=== PATIENT | male | born 1970 | race African-American/Black ===

== ENCOUNTER 2016-08-16 21:02 | Emergency (ER) | payer OTHER ==
[~2016-08-16] VITALS: Ht 175.3 cm; Wt 152.0 kg
--- NOTE | ~2016-08-16 | EKG ---
[place] [address] [facility] [place] [address] ELECTROCARDIOGRAM REPORT Name: PAUL WHITMAN Room #: DEP [place]#: [id number] Admission: 08/16/16 Attend Phys: Discharge: 08/16/16 Date of : 66 Report #: [id number] THIS REPORT FOR: //name// [facility] ED Test Date: 2016-08-16 Test Time: 21:28:51 Pat Name: PAUL WHITMAN Department: Room: Gender: Appointment Specialist: HUGH : 1970 Requested By: Kimberly Olmos Order Number: [id number] MD: Kobe Miller Measurements Intervals [place] Rate: 69 P: 45 [place]: 183 QRS: -20 QRSD: 168 T: 10 QT: 427 QTc: 458 Interpretive Statements Sinus rhythm Right bundle branch block No previous ECG available for comparison Electronically Signed On 08-17-2016 9:27:14 CDT by Kobe Miller [email or web address] <ELECTRONICALLY SIGNED> By: Kobe Miller MD, [facility] 08/17/16 0927 2128 2128 Kobe Miller MD, FAC /EPI
[~2016-08-16 21:02] MED LIST: HYDROCHLOROTH12.5 M1 PO; LISINOPRIL20 MG PO; NORCO 5-325 TA1 EACH PO; ZOCOR20 MG PO
[2016-08-16] MEDS ORDERED: OMEPRAZOLE40 MG PO (21:08)
[2016-08-16 21:24] LABS: URINE BILIRUBIN NEGATIVE (Negative); URINE BLOOD NEGATIVE (Negative); URINE COLOR YELLOW; URINE GLUCOSE-RANDOM* NEGATIVE (Negative); URINE KETONES NEGATIVE (Negative); URINE NITRITE NEGATIVE (Negative); URINE PROTEIN (DIPSTICK) NEGATIVE (Negative); URINE UROBILINOGEN 0.2 E.U./dl (0.2-1.0)
[2016-08-16 21:30] LABS: ABSOLUTE NEUTROPHILS 2.2 thou/uL (1.4-8.2); BASOPHILS 1.1 % (0.0-2.0); EOSINOPHILS 1.5 % (0.0-3.0); HEMATOCRIT 45.3 % (42.0-52.0); HEMOGLOBIN 14.8 gm/dL (14.0-18.0); MCH 26.1 pg (26.0-34.0); MCHC 32.7 g/dL (28.0-37.0); MCV 79.9 fL (80.0-100.0); MONOCYTES 9.1 % (1.0-8.0); PLATELET COUNT 199 thou/uL (150-400); POLYS 41.3 % (36.0-66.0); RBC 5.66 mil/uL (4.50-6.00); RDW 14.9 % (10.5-14.5); WBC 5.3 thou/uL (4.0-11.0)
[2016-08-16 21:34] LABS: MANUAL DIFF NO
[2016-08-16 21:41] LABS: ANION GAP 5 mmol/L (7-16); BUN 18 mg/dL (7-18); CALCIUM 9.1 mg/dL (8.5-10.1); CHLORIDE 106 mmol/L (98-107); CO2 30 mmol/L (21-32); GLUCOSE 118 mg/dL (74-106); POTASSIUM 3.8 mmol/L (3.5-5.1); SODIUM 141 mmol/L (136-145)
[2016-08-16 21:48] LABS: ALBUMIN 3.7 g/dL (3.4-5.0); ALKALINE PHOSPHATASE 48 U/L (46-116); DIRECT BILIRUBIN < 0.1 mg/dL (<0.1-0.3); SGOT 21 U/L (15-37); SGPT 28 U/L (30-65); TOTAL BILIRUBIN 0.3 mg/dL (<0.1-1.0); TOTAL PROTEIN 6.7 g/dL (6.4-8.2); TROPONIN-I < 0.04 ng/mL (<0.04-0.07)
[2016-08-16] MEDS ORDERED: NORCO 5-325 TA1 EACH PO (22:52)
[2016-08-16 23:30] VITALS: BP 135/79
== END 2016-08-16 22:52 ==
LOC: ER 21:02
PROVIDERS: Emergency Medicine
DX: K80.20 Calculus of gallbladder without cholecystitis without obstruction (principal); K21.9 Gastro-esophageal reflux disease without esophagitis; I10 Essential (primary) hypertension; E78.00 Pure hypercholesterolemia, unspecified; F10.99 Alcohol use, unspecified with unspecified alcohol-induced disorder; Z88.0 Allergy status to penicillin

== ENCOUNTER 2016-10-09 22:06 | Emergency (ER) | payer OTHER ==
[~2016-10-09] VITALS: Ht 175.3 cm; Wt 147.4 kg
[~2016-10-09 22:06] MED LIST changes: +OMEPRAZOLE40 MG PO
[2016-10-09] MEDS ORDERED: IBUPROFEN 800800 M1 PO (22:31)
[2016-10-10] MEDS ORDERED: TRAMADOL 50 MG50 MG PO (00:43)
[2016-10-10] MEDS ORDERED: ROBAXIN500 MG PO (00:43)
[2016-10-10] MEDS ORDERED: NAPROSYN500 MG PO (00:43)
[2016-10-10 00:55] VITALS: BP 116/61
== END 2016-10-10 00:56 | disposition home or self-care (01) ==
LOC: ER 22:06
DX: G44.209 Tension-type headache, unspecified, not intractable (principal); M46.82 Other specified inflammatory spondylopathies, cervical region; I10 Essential (primary) hypertension; E78.00 Pure hypercholesterolemia, unspecified; F10.99 Alcohol use, unspecified with unspecified alcohol-induced disorder; Z98.890 Other specified postprocedural states; Z88.0 Allergy status to penicillin

== ENCOUNTER 2017-11-23 08:28 | Emergency (ER) | payer OTHER ==
[~2017-11-23] VITALS: Ht 175.3 cm; Wt 167.8 kg
[~2017-11-23 08:28] MED LIST changes: +IBUPROFEN 800800 M1 PO; +NAPROSYN500 MG PO; +ROBAXIN500 MG PO; +TRAMADOL 50 MG50 MG PO
[2017-11-23] MEDS ORDERED: NORFLEX100 MG PO (09:08)
[2017-11-23] MEDS ORDERED: NORCO 5-325 TA1 EACH PO (09:08)
[2017-11-23] MEDS ORDERED: NAPROSYN500 MG PO (09:08)
[2017-11-23 10:04] VITALS: BP 120/71
== END 2017-11-23 10:16 | disposition home or self-care (01) ==
LOC: ER 08:28
DX: S39.012A Strain of muscle, fascia and tendon of lower back, initial encounter (principal); G89.29 Other chronic pain; E78.00 Pure hypercholesterolemia, unspecified; I10 Essential (primary) hypertension; X50.9XXA Other and unspecified overexertion or strenuous movements or postures, initial encounter; Y93.89 Activity, other specified; Y92.89 Other specified places as the place of occurrence of the external cause; Y99.8 Other external cause status; Z88.0 Allergy status to penicillin

== ENCOUNTER 2018-01-07 19:39 | Observation (INO) | payer OTHER ==
[~2018-01-07] VITALS: Ht 175.3 cm; Wt 182.8 kg
--- NOTE | ~2018-01-07 | EKG ---
[address] [address] ELECTROCARDIOGRAM REPORT Name: PAUL WHITMAN Room #: 363-P [facility] M.R.#: [id number] Admission: 01/07/18 Attend Phys: John Woodall MD Discharge: Date of : 66 Report #: [id number] THIS REPORT FOR: //name// [facility] ED Test Date: 2018-01-07 Test Time: 20:32:21 Pat Name: PAUL WHITMAN Department: Room: [facility] Gender: M Inspector Elevators: lester : 1970 Requested By: Anders Foreman Order Number: [id number] MD: Silvestre Cotton Measurements Intervals [place] Rate: 70 P: 50 [place]: 167 QRS: -24 QRSD: 171 T: 15 QT: 439 QTc: 474 Interpretive Statements Sinus rhythm Right bundle branch block Compared to ECG 08/16/2016 21:28:51 No significant changes Electronically Signed On 01-08-2018 9:38:04 GATE KEEPER by Silvestre Cotton [email or web address] <ELECTRONICALLY SIGNED> By: Silvestre Cotton MD 01/08/18937 31 31 MD LORENA Small
--- NOTE | ~2018-01-07 | 2DMMODE ---
[facility] [address] [place] [address] 2 D/M-MODE ECHOCARDIOGRAM Name: PAUL WHITMAN Room #: 363-P [facility] IN M.R.#: [id number] Admission: 01/07/18 Attend Phys: John Woodall MD Discharge: 01/08/18 Date of : 66 Date of Service: 01/09/18 1039 Report #: [id number] THIS REPORT FOR: //name// APPROVED REPORT Study performed: 01/08/2018 11:41:10 EXAM: Comprehensive 2D, Doppler, and color-flow Echocardiogram with contrast Patient Location: Bedside Room #: 363 Status: routine BSA: 1.07 HR: 61 bpm BP: 100/45 mmHg Rhythm: NSR Other Information Study Quality: Poor Indications Dyspnea Chest Pain Echo Enhancing Agent Indication: Endocardial border delineation Agent(s) / Amount(s) Used: Optison 6 cc 2D Dimensions IVSd: 13.00 (7-11mm) LVOT Diam: 22.75 (18-24mm) LVDd: 52.69 mm PWd: 12.50 (7-11mm) Ascending Ao: 31.64 (22-36mm) LVDs: 35.69 (25-40mm) Aortic Root: 33.68 mm Aortic Valve AoV Peak Minesh.: 1.70 m/s AO Peak Gr.: 12.74 mmHg LVOT Max P.75 mmHg LVOT Max V: 1.30 m/s BRITTANY Vmax: 3.10 cm2 Mitral Valve E/A Ratio: 1.5 MV Decel. Time: 215.53 ms MV E Max Minesh.: 1.11 m/s MV A Minesh.: 0.74 m/s [facility] [address] [address] 2 D/M-MODE ECHOCARDIOGRAM Name: PAUL WHITMAN Room #: 363-[facility] IN [facility].#: [id number] Admission: 01/07/18 Attend Phys: John Woodall MD Discharge: 01/08/18 Date of : 66 Date of Service: 01/09/18 1039 Report #: [id number] MV PHT: 62.50 ms IVRT: 96.89 ms Pulmonary Valve PV Peak Minesh.: 0.81 m/s PV Peak Gr.: 2.62 mmHg Pulmonary Vein P Vein S: 0.24 m/s P Vein D: 0.49 m/s P Vein S/D Ratio: 0.49 Tricuspid Valve TR Peak Minesh.: 0.74 m/s RAP Estimate: 5.00 mmHg TR Peak Gr.: 2.21 mmHg PA Pressure: 27.00 mmHg Left Ventricle The left ventricle is normal size. Mild concentric left ventricular hypertrophy. The left ventricular systolic function is normal. The left ventricular ejection fraction is within the normal range. LVEF is 55-60%. The left ventricular diastolic function is normal. Right Ventricle The right ventricle is normal size. Atria The left atrium size is normal. Aortic Valve The aortic valve is normal in structure. Aortic valve appears trileaflet. No aortic regurgitation is present. There is no aortic valvular stenosis. Mitral Valve Mitral valve is not well visualized. Trace mitral regurgitation. No evidence of mitral valve stenosis. Tricuspid Valve The tricuspid valve is normal in structure. Trace to mild tricuspid regurgitation. Estimated PAP of 27 mmHg. Pulmonic Valve Pulmonic valve is not well visualized. There is no pulmonic valvular regurgitation. Great [employer]els [facility] [address] [address] 2 D/M-MODE ECHOCARDIOGRAM Name: PAUL WHITMAN Room #: 363-P [facility] IN M.R.#: [id number] Admission: 01/07/18 Attend Phys: John Woodall MD Discharge: 01/08/18 Date of : 66 Date of Service: 01/09/18 1039 Report #: [id number] The aortic root is normal in size. The ascending aorta is normal in size. IVC is normal in size and collapses >50% with inspiration. Pericardium There is no pericardial effusion. <Conclusion> The left ventricle is normal size. Mild concentric left ventricular hypertrophy. The left ventricular systolic function is normal. LVEF is 55-60%. The left ventricular diastolic function is normal. The left atrium size is normal. The aortic valve is normal in structure. Mitral valve is not well visualized. Trace mitral regurgitation. Trace to mild tricuspid regurgitation. Estimated PAP of 27 mmHg. <ELECTRONICALLY SIGNED> By: Silvestre Cotton MD 01/09/181038 38 103 Silvestre Cotton MD /INF
--- NOTE | ~2018-01-07 | HC ---
[facility] [place] [address] CONSULTATION Name: PAUL WHITMAN Room #: 363-P [facility] Cristian Fraire#: [id number] Admission: 01/07/18 Attend Phys: John Woodall MD Discharge: 01/08/18 Date of : 66 Report #: [id number] THIS REPORT FOR: //name// CC: Kassandra Woodall DATE OF SERVICE: 01/08/2018 INDICATION: Chest pain. HISTORY OF PRESENT ILLNESS: This is a 47-year-old gentleman with a history of obesity, hypertension, hypercholesterolemia, presenting with dyspnea and chest discomfort. For the past 3 days, he has been feeling dyspneic with mild levels of physical exertion. Walking from one part of the house to the other will elicit dyspnea. He did not have any chest pains at that time. There is no history of fever, cough or nausea. He did feel malaise and head congestion. Yesterday, he also developed an ache across the chest area, nonradiating. It lasted throughout the day. It may have been a little bit worse when he took a deep breath. He presented to the ER for an evaluation. There is no history of diarrhea, PND or orthopnea. His first two troponin levels are negative. He is chest pain free at this time. PAST MEDICAL HISTORY: Hypertension, hypercholesterolemia, obesity, chronic back pains, GERD. MEDICATIONS: At home include hydrocodone, simvastatin 20 mg, hydrochlorothiazide and lisinopril. SOCIAL HISTORY: Denies tobacco use, former smoker. FAMILY HISTORY: Negative for premature CAD. REVIEW OF SYSTEMS: A full 10-point review of systems performed. Only the pertinent positives and negatives are described in the HPI. PHYSICAL EXAMINATION: VITAL SIGNS: Blood pressure is 120/70, heart rate is 80 beats per minute. GENERAL APPEARANCE: An overweight male, in no acute distress. HEENT: Atraumatic, normocephalic. Oral mucosa moist. NECK: Supple. LUNGS: Clear to auscultation. CARDIAC: Regular rate and rhythm, S1, S2 positive. ABDOMEN: Soft, nontender. EXTREMITIES: No cyanosis, trace edema. NEUROLOGIC: Alert and oriented x 3. [facility] [address] [place] [address] CONSULTATION Name: PAUL WHITMAN Room #: 363-P [facility] Cristian Fraire#: [id number] Admission: 01/07/18 Attend Phys: John Woodall MD Discharge: 01/08/18 Date of : 66 Report #: [id number] LABORATORY VALUES: Troponin negative x 2. ECG reveals sinus rhythm, right bundle branch block. ASSESSMENT AND PLAN: 1. Chest pain syndrome, the patient had chest pain all day long yesterday, not classic for ischemia. The initial ECG is unremarkable. Two sets of troponin levels are negative. I do not believe this is cardiac related. However, he does have significant risk factors and will require stress testing. The patient appears clinically stable and would like to be discharged and follow up with an outpatient stress test. As long as he remains clinically stable, I think this is a reasonable approach. 2. Hypertension. The blood pressure is well controlled on ROBERT inhibitor and diuretic. 3. Hypercholesterolemia, tolerating statin therapy, offers no complaints of myalgias. 4. Edema, trace amount. Continue with diuretic and maintain a low salt diet. <ELECTRONICALLY SIGNED> By: Silvestre Cotton MD 01/09/18 0959 0840 1122 Silvestre Cotton MD /nt
[2018-01-07 19:39] VITALS: BP 110/77
[~2018-01-07 19:39] MED LIST changes: +NORFLEX100 MG PO
[2018-01-07 20:28] LABS: ABSOLUTE NEUTROPHILS 2.4 thou/uL (1.4-8.2); BASOPHILS 1.7 % (0.0-2.0); EOSINOPHILS 1.7 % (0.0-3.0); HEMATOCRIT 44.5 % (42.0-52.0); HEMOGLOBIN 14.7 gm/dL (14.0-18.0); LYMPHOCYTES 40.4 % (24.0-44.0); MCH 26.1 pg (26.0-34.0); MCHC 32.9 g/dL (28.0-37.0); MCV 79.4 fL (80.0-100.0); MONOCYTES 8.4 % (1.0-8.0); PLATELET COUNT 211 thou/uL (150-400); POLYS 47.8 % (36.0-66.0); RBC 5.61 mil/uL (4.50-6.00); RDW 15.7 % (10.5-14.5)
[2018-01-07 20:42] LABS: ANION GAP 3 mmol/L (7-16); BUN 13 mg/dL (7-18); CALCIUM 9.6 mg/dL (8.5-10.1); CHLORIDE 106 mmol/L (98-107); CO2 32 mmol/L (21-32); CREATININE 0.9 mg/dL (0.7-1.3); GLUCOSE 119 mg/dL (74-106); POTASSIUM 4.5 mmol/L (3.5-5.1); SODIUM 141 mmol/L (136-145)
[2018-01-07 20:46] LABS: ALBUMIN 3.6 g/dL (3.4-5.0); MAGNESIUM 2.1 mg/dL (1.8-2.4); SGOT 36 U/L (15-37); SGPT 49 U/L (30-65); TOTAL BILIRUBIN 0.3 mg/dL (<0.1-1.0); TOTAL PROTEIN 7.2 g/dL (6.4-8.2); TROPONIN-I <0.06 ng/mL (<0.06)
[2018-01-07 20:52] LABS: AMP/METHAMP Negative (Negative); BARBITURATES Negative (Negative); BENZODIAZEPINES Negative (Negative); COCAINE Negative (Negative); METHADONE Negative (Negative); OPIATES Negative (Negative); PCP Negative (Negative)
[2018-01-07 21:57] VITALS: BP 132/66
[2018-01-07 23:14] VITALS: BP 118/65
[2018-01-07 23:24] VITALS: BP 112/53
[2018-01-07 23:35] VITALS: BP 145/70
[2018-01-08 03:07] LABS: CHOLESTEROL 151 mg/dL (<200); HDL CHOLESTEROL 70 mg/dL (>40); LDL CHOLESTEROL 61 mg/dL (<100); TC:HDL 2.2 Ratio (Not establshd); TRIGLYCERIDE 103 mg/dL (<150); VLDL 21 mg/dL (<40)
[2018-01-08 03:35] VITALS: BP 100/45
[2018-01-08 07:57] VITALS: BP 113/54
[2018-01-08] MEDS ORDERED: ASPIR 8181 MG PO (11:22)
[2018-01-08] MEDS ORDERED: NITROGLYCERIN0.4 MG SUBLING (11:22)
[2018-01-08] MEDS ORDERED: PANTOPRAZOLE SO40 M1 PO (11:22)
[2018-01-08] MEDS ORDERED: NAPROXEN250 MG PO (11:22)
[2018-01-08 11:30] VITALS: BP 113/54
[2018-01-08 12:39] VITALS: BP 129/81
[2018-01-09 00:05] LABS: GLYCOHEMOGLOBIN (HGB A1C) 5.6 % (4.8-5.6)
== END 2018-01-08 13:58 | disposition home or self-care (01) ==
LOC: ER 19:39 → EROBS 22:40 → 3W 23:26
PROVIDERS: Emergency Medicine; Nurse Practitioner Acute Care
DX: R07.89 Other chest pain (principal); I10 Essential (primary) hypertension; E78.5 Hyperlipidemia, unspecified; E66.01 Morbid (severe) obesity due to excess calories; K21.9 Gastro-esophageal reflux disease without esophagitis; M62.838 Other muscle spasm; R60.9 Edema, unspecified; G89.29 Other chronic pain; M54.5 Low back pain; G47.33 Obstructive sleep apnea (adult) (pediatric); E78.00 Pure hypercholesterolemia, unspecified; I82.409 Acute embolism and thrombosis of unspecified deep veins of unspecified lower extremity; R06.00 Dyspnea, unspecified; M46.82 Other specified inflammatory spondylopathies, cervical region; Z87.891 Personal history of nicotine dependence; Z98.890 Other specified postprocedural states; Z79.899 Other long term (current) drug therapy; Z79.82 Long term (current) use of aspirin; Z72.89 Other problems related to lifestyle

== ENCOUNTER → 2018-02-10 | Outpatient (CLI) | payer OTHER ==
[~2018-02-10] VITALS: Ht 175.3 cm; Wt 158.8 kg
[~2018-02-10] MED LIST changes: +ASPIR 8181 MG PO; +NAPROXEN250 MG PO; +NITROGLYCERIN0.4 MG SUBLING; +PANTOPRAZOLE SO40 M1 PO
[2018-02-10 07:16] LABS: HEMATOCRIT 44.2 % (42.0-52.0); HEMOGLOBIN 14.5 gm/dL (14.0-18.0); MCH 25.8 pg (26.0-34.0); MCHC 32.9 g/dL (28.0-37.0); MCV 78.5 fL (80.0-100.0); RBC 5.64 mil/uL (4.50-6.00); RDW 15.5 % (10.5-14.5); WBC 5.3 thou/uL (4.0-11.0)
[2018-02-10 07:24] VITALS: BP 164/95
[2018-02-10 07:25] LABS: CALCIUM 9.1 mg/dL (8.5-10.1); CREATININE 0.9 mg/dL (0.7-1.3)
[2018-02-10 07:31] LABS: CHOLESTEROL 162 mg/dL (<200); HDL CHOLESTEROL 77 mg/dL (>40); LDL CHOLESTEROL 65 mg/dL (<100); TC:HDL 2.1 Ratio (Not establshd); TRIGLYCERIDE 100 mg/dL (<150); VLDL 20 mg/dL (<40)
--- NOTE | 2018-02-10 08:42 | EKG ---
[place] [address] [facility] [place] [address] ELECTROCARDIOGRAM REPORT Name: PAUL WHITMAN Room #: REG [facility]#: [id number] Admission: 02/10/18 Attend Phys: Silvestre Cotton MD Discharge: Date of : 66 Report #: [id number] THIS REPORT FOR: //name// [facility] Test Date: 2018-02-10 Test Time: 07:29:28 Pat Name: PAUL WHITMAN Department: Room: Gender: M Vocational Training Instructor: Gal GARZON : 1970 Requested By: Silvestre Cotton Order Number: [id number] MD: Kobe Miller Measurements Intervals [place] Rate: 69 P: 56 [place]: 186 QRS: -25 QRSD: 168 T: 9 QT: 436 QTc: 467 Interpretive Statements Sinus rhythm Right bundle branch block Compared to ECG 01/07/2018 20:32:21 No significant changes Electronically Signed On 02-10-2018 8:42:06 NET MVC DEVELOPER by Kobe Miller [email or web address] <ELECTRONICALLY SIGNED> By: Kobe Miller MD, [facility] 02/10/18 0842 D: 01728 8 Kobe Miller MD, FACC /EPI
--- NOTE | 2018-02-10 14:10 | CATHLAB ---
[place] [address] [facility] [place] [address] INVASIVE PROCEDURE REPORT Name: PAUL WHITMAN Room #: REG [facility]#: [id number] Admission: 02/10/18 Attend Phys: Silvestre Cotton MD Discharge: Date of : 66 Date of Service: 02/10/18 1410 Report #: [id number] THIS REPORT FOR: //name// APPROVED REPORT Study performed: 02/10/2018 07:12:03 Patient Details Patient Status: Out-Patient Room #: The patient is a 47 year-old male Event Personnel Silvestre Cotton Detective Private Eye, Ev Guerrier RN RN, Ev Guerrier RN RN, Leslie Hogue Sandifer, David Monitor Procedures Performed Coronary Angiography Only [id number] CORANG Indication Dyspnea, Positive stress test, Chest pain Risk Factors Obesity, HypercholesterolemiaPhysical Activity, Hypertension Procedure Narrative The Right Wrist^ was infiltrated with 1% Lidocaine subcutaneous anesthesia. A PINNACLE 4FR Sheath #[id number] sheath was inserted into the Right Radial Artery^. Coronary angiography was performed using coronary diagnostic catheters. The right coronary system was accessed and visualized with a JR4 catheter. The left coronary system was accessed and visualized with a JL4 catheter. Intraoperative Conscious Sedation Sedation start time: 8.33 Case end Time: 9.04 Fentanyl 50 mcg Versed 1 mg Dose: DAP 20714 cGycm2 1692 mGy Contrast Type and Amount: Omnipaque 70 ml Coronary Angiography The patient's coronary anatomy is co- dominant. [facility] [address] [place] [address] INVASIVE PROCEDURE REPORT Name: PAUL WHITMAN SRAVAN Room #: REG CL ..#: [id number] Admission: 02/10/18 Attend Phys: Silvestre Cotton MD Discharge: Date of : 66 Date of Service: 02/10/18 1410 Report #: [id number] Diagnostic Cath Left Main This is a large caliber vessel, patent with no flow-limiting lesions. LAD This is a moderate to large caliber vessel, traversing the anterior wall and wrapping around the apex. There are no flow-limiting lesions in the LAD. Diagonal 1 This is a patent vessel, with no flow-limiting lesions. Circumflex This is a codominant vessel, patent with no flow-limiting lesions. OM1 This is a patent vessel, with no flow-limiting lesions. OM2 There may be minimal luminal irregularities in the proximal segment. Otherwise, this is a patent vessel. Right Coronary This is a moderate size caliber vessel, patent with no flow-limiting lesions. R PDA This is a patent vessel, with no flow-limiting lesions. Left Ventriculography Left Ventriculography was not performed. Ejection Fraction was >55% based off patient's Nuclear Cardiac Stress Test. Hemodynamics The aortic pressure is 124/83 mmHg with a mean of 100 mmHg. Conclusion 1. Essentially patent epicardial vessels with no flow-limiting lesions. There may be minimal luminal irregularities in OM 2. 2. Normal LV systolic function. 3. Recommend aggressive risk factor management. <ELECTRONICALLY SIGNED> By: Silvesrte Cotton MD 02/10/18 1410 1410 1410 Silvestre Cotton MD /INF
== END | disposition home or self-care (01) ==
LOC: CATH 06:47
PROVIDERS: Internal Medicine Cardiovascular Disease
DX: I25.10 Atherosclerotic heart disease of native coronary artery without angina pectoris (principal); I10 Essential (primary) hypertension; E78.00 Pure hypercholesterolemia, unspecified; E66.09 Other obesity due to excess calories; G47.33 Obstructive sleep apnea (adult) (pediatric); K21.9 Gastro-esophageal reflux disease without esophagitis; M54.5 Low back pain; G89.29 Other chronic pain; Z98.890 Other specified postprocedural states; Z82.49 Family history of ischemic heart disease and other diseases of the circulatory system; Z87.891 Personal history of nicotine dependence; Z87.19 Personal history of other diseases of the digestive system; Z88.0 Allergy status to penicillin; Z79.899 Other long term (current) drug therapy; Z79.82 Long term (current) use of aspirin

== ENCOUNTER → 2018-11-28 | Outpatient (CLI) | payer OTHER ==
[~2018-11-28] VITALS: Ht 175.3 cm; Wt 181.4 kg
--- NOTE | 2018-11-30 17:06 | PATH ---
[facility] [address] [place] [address] PATHOLOGY RPT PROCEDURE Name: AJ WHITMAN Room #: REG [facility] M.R.#: [id number] Admission: 11/28/18 Date of : 66 Discharge: Report #: [id number] Path Case #: [id number] LCA Accession Number: [id number] . 01 Material submitted: . colon - TRANSVERSE COLON POLYP. Modifiers: transverse . 01 Clinical history: . Pre-op diagnosis: Screening Post-op diagnosis: Polyps . 02 Diagnosis: Polyp, transverse colon polyp, endoscopic biopsy: - Compatible with an inflammatory polyp associated with hyperplastic changes. - Negative for dysplasia or malignancy. (IUV:julieta; 11/30/2018) QMS 11/30/2018 1454 Local . 02 Electronically signed: . Darlene Hernandez MD, Pathologist NPI- [id number] . 01 Gross description: . The specimen is received in formalin, labeled "Aj Ashlyn, transverse colon polyp". Received is a segment of pale banda soft tissue measuring 1.2 cm in maximum dimensions. The specimen is submitted entirely in cassette A1. (CAA; 11/29/2018) QAC/QAC 11/29/2018 0949 Local . 02 Pathologist provided ICD-10: K51.40 . 02 CPT . 994713 Specimen Comment: A courtesy copy of this report has been sent to Specimen Comment: [phone], . Specimen Comment: Report sent to / DR BECK Performed at: [address], [place] [id number] MD Chris Barbosa MD Phone: [phone] Performed at: [address] [id number] MD Darlene Hernandez MD Phone: [phone]
== END | disposition home or self-care (01) ==
LOC: GI 09:33
DX: Z12.11 Encounter for screening for malignant neoplasm of colon (principal); K51.40 Inflammatory polyps of colon without complications; K57.30 Diverticulosis of large intestine without perforation or abscess without bleeding; K64.8 Other hemorrhoids; K21.9 Gastro-esophageal reflux disease without esophagitis; I10 Essential (primary) hypertension; E78.00 Pure hypercholesterolemia, unspecified; E78.5 Hyperlipidemia, unspecified; G47.30 Sleep apnea, unspecified; Z98.890 Other specified postprocedural states; Z79.899 Other long term (current) drug therapy; Z88.0 Allergy status to penicillin; Z87.891 Personal history of nicotine dependence
CPT/HCPCS: 62110; 62900

== ENCOUNTER 2019-01-11 05:53 | Day surgery (SDC) | payer BC, OTHER ==
[~2019-01-11] VITALS: Ht 175.3 cm; Wt 172.4 kg
[2019-01-11 06:58] LABS: CREATININE 1.1 mg/dL (0.7-1.3); POTASSIUM 4.3 mmol/L (3.5-5.1)
[2019-01-11 07:08] VITALS: BP 116/62
[2019-01-11] MEDS ORDERED: IBUPROFEN 200200 M1 PO (08:41)
[2019-01-11] MEDS ORDERED: OXYCODONE HCL 55 MG PO (08:41)
[2019-01-11] MEDS ORDERED: MIRALAX17 GM PO (08:42)
[2019-01-11] MEDS ORDERED: ACETAMINOPHEN325 M1 PO (08:42)
[2019-01-11] MEDS ORDERED: COLACE 100 MG100 MG PO (08:42)
[2019-01-11 08:50] VITALS: BP 116/62
[2019-01-11 08:56] VITALS: BP 116/62
--- NOTE | 2019-01-18 11:07 | PATH ---
[facility] [place] [place] [address] PATHOLOGY RPT PROCEDURE Name: AJ WHITMAN Room #: DEP [facility] M.R.#: [id number] Admission: 01/11/19 Date of : 66 Discharge: 01/11/19 Report #: [id number] Path Case #: [id number] LCA Accession Number: [id number] . 01 Material submitted: . PART A: suprapubic area - RIGHT MASS OF SUPRAPUBIC REGION. Modifiers: right PART B: suprapubic area - LEFT MASS OF SUPRAPUBIC REGION. Modifiers: left . 01 Clinical history: . Other intra-abdominal and pelvic swelling, mass and lump . 02 Diagnosis: A. 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 - Margins free in the sections submitted. . B. 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 - Margins free in the sections submitted; less than 1 mm away from inked margin. (IUV:julieta; 01/16/2019) QMS 01/16/2019 1248 Local . 02 Comment: Examination shows a neoplasm comprised of eosinophilic cells with eccentrically placed nuclei and ample cytoplasm. The nuclear to cytoplasmic ratio is low. There is no pleomorphism, increased mitoses, or atypical cells identified. The neoplasm infiltrates through these collagen bundles as well as the subcutaneous tissues within the "left suprapubic region". The neoplastic cells are less than 1 mm away from the inked margin within this resection. . Multiple properly controlled immunohistochemical stains are performed to confirm the diagnosis and to exclude other neoplastic processes. . HMB-45 on blocks A4 and B2 - nonreactive within the neoplasm. CD68 on blocks A4 and B2 - reactive within the neoplasm. Inhibin on blocks A4 and B2 - strongly reactive within the neoplasm. S100 on blocks A4 and B2 - strongly reactive within the neoplasm. AE1/AE3 on blocks A4 and B2 - nonreactive within the neoplasm. Beta catenin on blocks A4 and B2 - no nuclear reactivity identified within the neoplasm. SMA on blocks A4 and B2 - no reactivity within the neoplasm. Muscle specific actin on blocks A4 and B2 - no reactivity within the neoplasm. [facility] [address] [place] [address] PATHOLOGY RPT PROCEDURE Name: AJ WHITMAN Room #: DEP [facility] Chente.Haylee.#: [id number] Admission: 01/11/19 Date of : 66 Discharge: 01/11/19 Report #: [id number] Path Case #: [id number] . Dr. Shaggy Ramirez has seen outside medical sales representative slides of this case (slides A4 and B2) and concurs with my diagnosis rendered. Findings of this case are discussed with Dr. Harris Phillips in the morning of 01/13/2019. . (IUV:julieta; 01/16/2019) . 02 Electronically signed: . Darlene Hernandez MD, Pathologist NPI- [id number] . 01 Gross description: . A. The specimen is received in formalin, labeled "Ridgway, Aj, right mass of suprapubic region" and consists of a firm segment of brown polypoid skin measuring 4.8 x 2.8 x 3.8 cm with underlying yellow adipose tissue measuring 4.8 x 2.3 x 1.6 cm. The skin aspect is firm/indurated. The margin is inked black. Sectioning reveals banda greasy cut surfaces with a small background of klein-banda fibrous tissue. Cook Helper Fruit sections are submitted in A1-A5. . B. The specimen is received in formalin, labeled "Ashlyn, Aj, left mass of suprapubic region" and consists of a brown skin ellipse measuring 3.1 x 1.6 cm excised to a depth of 2.0 cm. The subcutaneous tissue is firm. The surgical margins are inked black. Sectioning reveals firm pink-banda fibrotic cut surfaces throughout. Cook Helper Fruit and there is submitted in B1-B3. (SDY; 01/12/2019) SYU/SYU 01/16/2019 1240 Local . 02 Pathologist provided ICD-10: D21.6 . 02 CPT . 965496, 247399, M48209, X47785 Specimen Comment: A courtesy copy of this report has been sent to [phone] Specimen Comment: [phone] Specimen Comment: Report sent to / DR BECK Performed at: 01 [facility] [address] [place] [address] [address], [place], [place] [id number] MD Chris Barbosa MD Phone: [phone] Performed at: [address] [facility] [address] [id number] MD Darlene Hernandez MD Phone: [phone]
== END 2019-01-11 10:15 | disposition home or self-care (01) ==
LOC: OR 05:53 → TBA 06:01 → OR 10:15
PROVIDERS: Orthopaedic Surgery Sports Medicine
DX: D21.5 Benign neoplasm of connective and other soft tissue of pelvis (principal); I10 Essential (primary) hypertension; G47.30 Sleep apnea, unspecified; E78.5 Hyperlipidemia, unspecified; K21.9 Gastro-esophageal reflux disease without esophagitis; Z98.890 Other specified postprocedural states; Z79.899 Other long term (current) drug therapy; Z87.891 Personal history of nicotine dependence; Z88.0 Allergy status to penicillin
CPT/HCPCS: 50010; 50101; 50386; 50417; 56525; 56526; 62110; 62900; 70005

== ENCOUNTER → 2019-03-09 | Outpatient (CLI) | payer BC, OTHER ==
[~2019-03-09] MED LIST changes: +ACETAMINOPHEN325 M1 PO; +COLACE 100 MG100 MG PO; +IBUPROFEN 200200 M1 PO; +MIRALAX17 GM PO; +OXYCODONE HCL 55 MG PO
== END ==
LOC: ULTRA 15:28
DX: M79.605 Pain in left leg (principal); R60.0 Localized edema

== ENCOUNTER 2019-03-23 18:29 | Emergency (ER) | payer BC, OTHER ==
[~2019-03-23] VITALS: Ht 175.3 cm; Wt 176.9 kg
[2019-03-23 21:06] LABS: ABSOLUTE NEUTROPHILS 3.6 thou/uL (1.4-8.2); BASOPHILS 1.5 % (0.0-2.0); EOSINOPHILS 1.1 % (0.0-3.0); HEMATOCRIT 44.4 % (42.0-52.0); HEMOGLOBIN 13.9 gm/dL (14.0-18.0); MCH 25.3 pg (26.0-34.0); MCHC 31.2 g/dL (28.0-37.0); MCV 80.9 fL (80.0-100.0); MONOCYTES 9.7 % (1.0-8.0); PLATELET COUNT 289 thou/uL (150-400); POLYS 60.7 % (36.0-66.0); RBC 5.49 mil/uL (4.50-6.00); RDW 14.5 % (10.5-14.5)
[2019-03-23 21:12] LABS: CALCIUM 9.6 mg/dL (8.5-10.1); POTASSIUM 4.4 mmol/L (3.5-5.1)
[2019-03-23 23:54] LABS: URINE BILIRUBIN NEGATIVE (Negative); URINE BLOOD NEGATIVE (Negative); URINE CLARITY CLEAR; URINE COLOR YELLOW; URINE GLUCOSE-RANDOM* NEGATIVE (Negative); URINE KETONES NEGATIVE (Negative); URINE LEUKOCYTES-REFLEX NEGATIVE (Negative); URINE NITRITE-REFLEX NEGATIVE (Negative); URINE PROTEIN (DIPSTICK) NEGATIVE (Negative); URINE UROBILINOGEN 0.2 E.U./dl (0.2-1.0)
[2019-03-24] MEDS ORDERED: SENNA-DOCUSATE1 EAC1 PO (00:23)
[2019-03-24] MEDS ORDERED: PERCOCET 5-3251 EACH PO (00:23)
[2019-03-24 00:36] VITALS: BP 131/71
== END 2019-03-24 00:48 | disposition home or self-care (01) ==
LOC: ER 18:29
PROVIDERS: Emergency Medicine
DX: R60.0 Localized edema (principal); I10 Essential (primary) hypertension; E78.5 Hyperlipidemia, unspecified; G47.30 Sleep apnea, unspecified; K21.9 Gastro-esophageal reflux disease without esophagitis; Z98.890 Other specified postprocedural states; Z88.0 Allergy status to penicillin

== ENCOUNTER 2020-01-08 14:20 | Emergency (ER) | payer BC, OTHER ==
[~2020-01-08] VITALS: Ht 175.3 cm; Wt 170.1 kg
[~2020-01-08 14:20] MED LIST changes: +PERCOCET 5-3251 EACH PO; +SENNA-DOCUSATE1 EAC1 PO
[2020-01-08] MEDS ORDERED: PROAIR HFA8.5 GM INH (14:31)
[2020-01-08 14:46] LABS: URINE BILIRUBIN NEGATIVE (Negative); URINE BLOOD 3+ (Negative); URINE CLARITY HAZY; URINE COLOR YELLOW; URINE GLUCOSE-RANDOM* NEGATIVE (Negative); URINE KETONES NEGATIVE (Negative); URINE LEUKOCYTES-REFLEX 1+ (Negative); URINE NITRITE-REFLEX NEGATIVE (Negative); URINE PROTEIN (DIPSTICK) TRACE (Negative); URINE SPECIFIC GRAVITY 1.025 (1.005-1.035); URINE UROBILINOGEN 0.2 E.U./dl (0.2-1.0)
[2020-01-08 14:55] LABS: SQUAMOUS None Seen /LPF (0-3); URINE WBC-REFLEX 6-15 Few /HPF (0-5)
[2020-01-08 14:56] LABS: BACTERIA-REFLEX 1-9 Few /HPF (None Seen); CASTS None Seen /LPF (None Seen); CRYSTALS None Seen /LPF (None Seen)
[2020-01-08 15:22] LABS: ABSOLUTE NEUTROPHILS 5.1 thou/uL (1.4-8.2); EOSINOPHILS 0.8 % (0.0-3.0); HEMATOCRIT 45.1 % (42.0-52.0); HEMOGLOBIN 14.4 gm/dL (14.0-18.0); MCH 25.7 pg (26.0-34.0); MCV 80.2 fL (80.0-100.0); MONOCYTES 8.9 % (1.0-8.0); PLATELET COUNT 222 thou/uL (150-400); POLYS 69.3 % (36.0-66.0); RBC 5.62 mil/uL (4.50-6.00); RDW 15.2 % (10.5-14.5); WBC 7.3 thou/uL (4.0-11.0)
[2020-01-08 15:29] LABS: CALCIUM 9.5 mg/dL (8.5-10.1); CREATININE 1.1 mg/dL (0.7-1.3); POTASSIUM 4.4 mmol/L (3.5-5.1)
[2020-01-08 15:36] LABS: ALBUMIN 3.4 g/dL (3.4-5.0); TOTAL BILIRUBIN 0.6 mg/dL (0.2-1.0); TOTAL PROTEIN 7.4 g/dL (6.4-8.2)
[2020-01-08] MEDS ORDERED: NORCO 5-325 TA1 EAC2 PO (22:03)
[2020-01-08] MEDS ORDERED: KEFLEX500 M1 PO (22:03)
[2020-01-08 22:29] VITALS: BP 140/83
== END 2020-01-08 22:30 | disposition home or self-care (01) ==
LOC: ER 14:20
PROVIDERS: Emergency Medicine
DX: N39.0 Urinary tract infection, site not specified (principal); I10 Essential (primary) hypertension; E78.5 Hyperlipidemia, unspecified; K21.9 Gastro-esophageal reflux disease without esophagitis; E66.9 Obesity, unspecified; Z98.61 Coronary angioplasty status; Z98.890 Other specified postprocedural states; Z79.899 Other long term (current) drug therapy; Z88.0 Allergy status to penicillin; Z87.891 Personal history of nicotine dependence; Z68.43 Body mass index [BMI] 50.0-59.9, adult

== ENCOUNTER → 2020-04-08 | Outpatient (CLI) | payer OTHER, BC ==
[~2020-04-08] MED LIST changes: +KEFLEX500 M1 PO; +NORCO 5-325 TA1 EAC2 PO; +PROAIR HFA8.5 GM INH; +SIMVASTATIN40 MG PO; +ZESTRIL40 MG PO
== END ==
LOC: LAB 10:57
PROVIDERS: ATTEND Surgery
DX: Z01.812 Encounter for preprocedural laboratory examination (principal); Z20.822 Contact with and (suspected) exposure to COVID-19

== ENCOUNTER 2020-04-11 18:30 | Emergency (ER) | payer OTHER, BC ==
[~2020-04-11] VITALS: Ht 175.3 cm; Wt 190.5 kg
[2020-04-11 19:28] LABS: HEMATOCRIT 48.1 % (42.0-52.0); HEMOGLOBIN 15.3 gm/dL (14.0-18.0); MCH 25.5 pg (26.0-34.0); MCHC 31.8 g/dL (28.0-37.0); MCV 80.2 fL (80.0-100.0); RDW 14.7 % (10.5-14.5); WBC 5.4 thou/uL (4.0-11.0)
[2020-04-11 19:37] LABS: ANION GAP 8 mmol/L (7-16); BUN 10 mg/dL (7-18); CALCIUM 9.3 mg/dL (8.5-10.1); CHLORIDE 103 mmol/L (98-107); CO2 30 mmol/L (21-32); CREATININE 0.8 mg/dL (0.7-1.3); GLUCOSE 140 mg/dL (74-106); SODIUM 141 mmol/L (136-145)
[2020-04-11 19:47] LABS: ALBUMIN 3.8 g/dL (3.4-5.0); SGOT 31 U/L (15-37); SGPT 43 U/L (16-63); TOTAL BILIRUBIN 0.5 mg/dL (0.2-1.0); TOTAL PROTEIN 7.5 g/dL (6.4-8.2); TROPONIN-I <0.06 ng/mL (<0.06)
[2020-04-11] MEDS ORDERED: VENTOLIN HFA INH8 GM INH (19:48)
[2020-04-11 21:33] VITALS: BP 109/57
--- NOTE | 2020-04-12 07:12 | EKG ---
[place] [address] [facility] [place] [address] ELECTROCARDIOGRAM REPORT Name: PAUL WHITMAN SR Room #: [facility]#: [id number] Admission: 04/11/20 Attend Phys: Discharge: 04/11/20 Date of : 66 Report #: [id number] [facility] ED Test Date: 2020-04-11 Test Time: 18:34:58 Pat Name: PAUL WHITMAN Department: Room: Gender: Relay Telegrapher: CHARLENE : 1970 Requested By: Adele Butler Order Number: [id number] MD: Antelmo Mittal Measurements Intervals [place] Rate: 73 P: 51 W[place]: 168 QRS: -62 QRSD: 170 T: 21 QT: 427 QTc: 471 Interpretive Statements Sinus rhythm RBBB and LAFB Compared to ECG 02/10/2018 07:29:28 Left anterior fascicular block now present Electronically Signed On 04-12-2020 7:12:30 SALICYLIC ACID BLENDER by Antelmo Mittal [email or web address] <ELECTRONICALLY SIGNED> By: Antelmo Mittal MD, [facility] 04/12/2012 33 33 Antelmo Mittal MD, FACC /EPI
== END 2020-04-11 21:33 | disposition home or self-care (01) ==
LOC: ER 18:30
PROVIDERS: Nurse Practitioner Family
DX: R07.9 Chest pain, unspecified (principal); I10 Essential (primary) hypertension; E78.5 Hyperlipidemia, unspecified; Z79.899 Other long term (current) drug therapy; Z88.0 Allergy status to penicillin; Z87.891 Personal history of nicotine dependence

== ENCOUNTER → 2020-04-19 | Outpatient (CLI) | payer OTHER, BC ==
[~2020-04-19] MED LIST changes: +HYDROCODON-ACE1 EAC7 PO; +VENTOLIN HFA INH8 GM INH
== END ==
LOC: SJCVC 10:42 → SJCVCIMAG 10:42
PROVIDERS: ATTEND Internal Medicine Cardiovascular Disease
DX: I07.1 Rheumatic tricuspid insufficiency (principal); I11.9 Hypertensive heart disease without heart failure; I45.10 Unspecified right bundle-branch block; R94.31 Abnormal electrocardiogram [ECG] [EKG]; E78.00 Pure hypercholesterolemia, unspecified; K82.9 Disease of gallbladder, unspecified; K21.9 Gastro-esophageal reflux disease without esophagitis; G89.29 Other chronic pain; E66.9 Obesity, unspecified; E78.5 Hyperlipidemia, unspecified; Z98.890 Other specified postprocedural states; Z88.0 Allergy status to penicillin; Z79.899 Other long term (current) drug therapy; Z87.891 Personal history of nicotine dependence; Z82.49 Family history of ischemic heart disease and other diseases of the circulatory system

== ENCOUNTER → 2020-05-03 | Outpatient (CLI) | payer OTHER, BC ==
[~2020-05-03] MED LIST changes: -HYDROCODON-ACE1 EAC7 PO
== END ==
LOC: MRI 14:23
PROVIDERS: ATTEND Family Medicine
DX: M51.36 Other intervertebral disc degeneration, lumbar region (principal); M47.816 Spondylosis without myelopathy or radiculopathy, lumbar region; M48.061 Spinal stenosis, lumbar region without neurogenic claudication; M25.78 Osteophyte, vertebrae

== ENCOUNTER → 2020-05-06 | Outpatient (CLI) | payer OTHER, BC ==
[~2020-05-06] MED LIST changes: +HYDROCODON-ACE1 EAC7 PO
== END ==
LOC: LAB 14:31
PROVIDERS: ATTEND Surgery
DX: Z01.812 Encounter for preprocedural laboratory examination (principal); Z20.822 Contact with and (suspected) exposure to COVID-19

== ENCOUNTER 2020-05-10 06:22 | Observation (INO) | payer BC, OTHER ==
[~2020-05-10] VITALS: Ht 175.3 cm; Wt 190.5 kg
[2020-05-10 07:26] LABS: HEMATOCRIT 45.9 % (42.0-52.0); HEMOGLOBIN 14.8 gm/dL (14.0-18.0); MCH 25.8 pg (26.0-34.0); MCHC 32.3 g/dL (28.0-37.0); MCV 79.8 fL (80.0-100.0); RBC 5.76 mil/uL (4.50-6.00); RDW 15.2 % (10.5-14.5); WBC 4.7 thou/uL (4.0-11.0)
[2020-05-10 07:47] LABS: POTASSIUM 4.1 mmol/L (3.5-5.1)
[2020-05-10 07:51] LABS: ALBUMIN 3.6 g/dL (3.4-5.0); TOTAL BILIRUBIN 0.3 mg/dL (0.2-1.0); TOTAL PROTEIN 7.2 g/dL (6.4-8.2)
[2020-05-10 10:39] VITALS: BP 133/78
[2020-05-10] MEDS ORDERED: PERCOCET 5-3251 EACH PO (12:26)
[2020-05-10] MEDS ORDERED: MIRALAX17 GM PO (12:26)
--- NOTE | 2020-05-10 13:44 | NUR ---
ASSUMED PT CARE FROM PACU. PT IS ALERT & ORIENTED X4. PT HAS IV SITE ON L HAND 20 GAUGE SALINE LOCKED. PT HAS ANCA FERREIRA ON R UPPER QUAD ABDOMEN. PT PT HAS NC @ 2L. PT STATED USES CPAP AT HOME BUT DID NOT BRING CPAP. PT HAD LAP GILA TODAY AND 5 LAP SITE. PT HAS SCD ON. PT ON MED SURG TELE. FINISHED ADMISSION ASSESSMENT. PT AT THE BEDSIDE. PT ON THE BED WATCHING TV, SIDE RAILS UP, CALL LIGHT WITHIN REACH. WILL CONTINUE TO MONITOR PT.
[2020-05-10 14:46] VITALS: BP 114/59
--- NOTE | 2020-05-10 16:48 | NUR ---
ASUMED PT CARE THIS AFTERNOON FROM PACU. PT HAD LAP GILA TODAY. FINISHED ADMISSION ASSESSMENT, HOSTORY AND EDUCATION. PT HAS 5 LAP SITES AND 1 J DIGNA ON RUQ ABDOMENT. PT HAS NC @ 2L/MIN. PT HAS SCD ON. PT C/O OF PAIN AND GIVEN PAIN MEDICATION. AT THE BEDSIDE. PT ON THE BED WATCHING TV, BED ON THE LOWEST POSITION, CALL LIGHT WITHIN REACH. WILL CONTINUE TO MONITOR PT. FOLLOW POC.
[2020-05-10 17:27] VITALS: BP 144/88
[2020-05-10 20:13] VITALS: BP 122/66
--- NOTE | 2020-05-11 03:25 | NUR ---
ASSUMED CARE OF PT AT 1900. PT IS A/O X4 AND IS UP AD ALL. ROOM AIR BUT [facility]. SR/BBB ON THE MONITOR. VOIDS PER URINAL OR BR. NO BM THIS SHIFT AND PT HAS STATED HE HAS NOT PASSED FLATUS POST SURGERY. LAP SITES REMAIN C/D/I WITH NO DRAINAGE NOTED. DIPAK INTACT AND DRAINING RED DRAINAGE. PT AMBULATED IN HALLWAY THIS EVENING WITHOUT DIFFICULTY. C/O PAIN. PRN PAIN MEDICATION GIVEN DIRECTED. PT IS SLEEPING IN CHAIR STATING IT IS BETTER FOR HIS BACK. CALL LIGHT IS WITHIN REACH. WILL CONTINUE TO MONITOR.
[2020-05-11 08:30] VITALS: BP 127/77
--- NOTE | 2020-05-11 11:08 | NUR ---
Received awake on bed. Due medication given as prescribed, able to swallow meds w/o difficulty. On room air during daytime and Cpap at HS. On telemetry; no complains and signs of chest pain, crushing sensation and heaviness. On regular diet- tolerating well; no nausea, no vomiting and no abdominal pain noted. Able to pass gas. Continent of bowel and bladder, able to go to the toilet independently. With SL at L hand- intact. With 6 abdominal lap sites with steri strip in place- no bleeding and drainage noted; with DIPAK drain in place- output measured and recorded; s/p lap lina 4/2. Able to ambulate in the hallway with walker. No complains of pain made during assessment. A/w physician's rounds re: PO antibiotics, DIPAK drain and discharge. To continue monitoring patient.
[2020-05-11 11:56] VITALS: BP 127/77
[2020-05-11 13:10] VITALS: BP 134/69
--- NOTE | 2020-05-13 18:06 | PATH ---
[facility] [address] [place] [address] PATHOLOGY RPT PROCEDURE Name: PAUL WHITMAN SR Room #: 463-P BLAZE Fraire#: [id number] Admission: 05/10/20 Date of : 66 Discharge: 05/11/20 Report #: [id number] Path Case #: [id number] [facility] Accession Number: [id number] . 01 Material submitted: . gallbladder - GALLBLADDER . 01 Clinical history: . DS 05/10/LAPAROSCOPIC CHOLECYSTECTOMY LAPAROSCOPIC CHOLECYSTECTOMY SYMPTOMATIC CHOLELITHIASIS . 02 Diagnosis: Gallbladder, cholecystectomy: - Mild chronic cholecystitis. - Cholelithiasis. (IUV:pit 05/13/2020) QTP 05/13/2020 [facility] Local . 02 Electronically signed: . Darlene Hernandez MD, Pathologist NPI- [id number] . 01 Gross description: . Fixative: Formalin Labeled: Gallbladder Specimen received: Intact Dimensions: 7.9 x 3.2 x 2.4 cm Serosa: Smooth, banda-pink and glistening with a roughened hepatic bed with 2 full-thickness defect located within the hepatic bed measuring 1.9 x 0.8 cm and 1.1 x 0.6 cm with the closest measuring 1.6 cm from the cystic duct margin Lymph node: No Mucosa: Velvety, banda-brown Average wall thickness: 0.3 cm Calculi: An ovoid, green-black calculus measuring 2.4 x 1.9 x 1.6 cm Abnormalities: Described above A[address]- [address] [employer] body, fundus, hepatic bed defect and the cystic duct margin(inked black). ([facility]; 05/11/2020) . . . GZA/GZA 05/11/2020 1052 Local . 02 Pathologist provided ICD-10: K80.10 . 02 [place] [address] PATHOLOGY RPT PROCEDURE Name: PAUL WHITMAN SR Room #: 463-P BLAZE Fraire#: [id number] Admission: 05/10/20 Date of : 66 Discharge: 05/11/20 Report #: [id number] Path Case #: [id number] CPT . 444948 Specimen Comment: A courtesy copy of this report has been sent to [phone], [phone] Specimen Comment: [phone] Specimen Comment: Report sent to / Performed at: [address] [facility] [address], [place], [place] [id number] MD Zander Marroquin MD Phone: [phone] Performed at: [address] [id number] MD Darlene Hernandez MD Phone: [phone]
== END 2020-05-11 15:29 | disposition home or self-care (01) ==
LOC: TBA 06:22 → OR 06:22 → 4W 12:11 → OR 12:12 → 4W 12:12 → OR 12:17 → 4W 05-11 15:29
PROVIDERS: ADMIT Surgery; ATTEND Surgery
DX: K80.10 Calculus of gallbladder with chronic cholecystitis without obstruction (principal); K21.9 Gastro-esophageal reflux disease without esophagitis; I10 Essential (primary) hypertension; E78.5 Hyperlipidemia, unspecified; Z87.891 Personal history of nicotine dependence; Z79.899 Other long term (current) drug therapy
CPT/HCPCS: 50010; 50101; 50411; 50555; 50558; 50900; 51489; 52265; 52266; 52287; 53307; 53310; 53312; 54022; 54118; 55245; 56462; 56525; 56526; 58115; 58574; 62110; 62900; 65131; 70005

== ENCOUNTER → 2020-07-16 | Outpatient (CLI) | payer OTHER, BC ==
[~2020-07-16] VITALS: Ht 175.3 cm; Wt 195.0 kg
[2020-07-16 09:03] VITALS: BP 135/74
--- NOTE | 2020-07-16 09:21 | NUR ---
Pain Clinic Assessment: 1. History of Osteoarthritis: Not Applicable History of Rheumatoid Arthritis: Not Applicable 2. Height: 5 ft. 9 in. 175.3 cm. Weight: 430.0 lb. oz. 195.048 kg. Patient's BMI: 63.5 3. Vital Signs: BP: 135/74 Pulse: 77 Resp: 16 Temp: 02 Sat: 98 ECG Mon: 4. Pain Intensity: 8 5. Fall Risk: Dizziness: N Needs help standing or walking: N Fallen in the last 3 months: N Fall risk comments: 6. Patient on Blood Thinner: None 7. History of Hypertension: Y 8. Opioid Therapy greater than 6 weeks: Opiate Contract Signed: 9. Risk Assessment Tool Provided: 0 LOW RISK 10. Functional Assessment Tool: 11. Recreational Drug Use: Never Drug Type: Tobacco Use: Former Smoker Tobacco Type: Amount or Packs/day: How Many Years: Alcohol Use: No Frequency: Quant:
--- NOTE | 2020-07-23 09:33 | HPC ---
[facility] [place] [address] [place] [address] PAIN MANAGEMENT CONSULTATION Name: PAUL WHITMAN SR Room #: REG [facility].#: [id number] Admission: 07/16/20 Attend Phys: Bill Adam DO Discharge: Date of : 66 Report #: [id number] THIS REPORT FOR: cc: Bill Bautista James A. DO Johnson, James E. DO ~ DOC #: [id number] Bill Adam DO DATE OF SERVICE: 07/16/2020 CHIEF COMPLAINT: Low back pain, left lower extremity pain with paresthesias. HISTORY OF PRESENT ILLNESS: As you know, the patient is a very pleasant, severely morbidly obese 49-year-old male, who reports longstanding history of low back pain, left lower extremity pain with paresthesias. The patient states he has been dealing with back pain issues and intermittent lower extremity pain issues since 03/2000. The patient denies any specific injury or trauma. He states he is just trying to put up with most of his symptoms. He did have back surgery performed at [facility] in the past, which provided some improvement in symptoms. He has also trialled physical therapy, massage therapy, none of which has been quite beneficial. He recently brought himself to the Emergency Department due to increasing pain in the left lower extremity symptoms. He underwent MRI lumbar spine 05/03/2020, which showed significant changes at the various levels and the patient was subsequently trialled on conservative treatment. This did not improve symptoms and thus, he was referred to our clinic to discuss more aggressive treatment options, specifically lumbar epidural injections. The patient reports his pain is rhythmic. He describes the pain as shooting, pulling, sharp, numbness and tingling. Places current pain score at 5-1/2 over 10 daily, average of 5-7/10. Worst pain has been is 9/10. The patient states pain is exacerbated with sleeping, sitting for any length of time, walking for any distance or standing for long periods of time. Nothing today has improved his symptoms, even the surgery performed at [facility]. He has been referred to our service to discuss interventional treatment options to address suspected lumbar radiculopathy. PAST MEDICAL HISTORY: 1. Severe morbid obesity. 2. Hypertension. 3. Dyslipidemia. 4. Asthma. 5. Gastroesophageal reflux disease. PAST SURGICAL HISTORY: 1. Cholecystectomy. 2. Low back surgery. [address] [address] PAIN MANAGEMENT CONSULTATION Name: PAUL WHITMAN SR Cynthia Room #: REG [facility]#: [id number] Admission: 07/16/20 Attend Phys: Bill Adam DO Discharge: Date of : 66 Report #: [id number] 3. Debridement of a fissure. SOCIAL HISTORY: The patient denies tobacco, alcohol or IV or illicit drug use. He is working, states that he is receiving workmen's compensation, benefits. He is not in litigation in regards to pain at this time. He is unaccompanied at today's visit. REVIEW OF SYSTEMS: Positive for fatigue and weakness, shortness of breath with walking, lying flat, asthma, wheezing, chronic low back pain, left lower extremity pain, numbness and tingling, morbid obesity. All other review of systems negative per 12-point review of systems other than those listed in history of present illness. Pain impact score 40/70, moderate to severe, interference of daily activities secondary to pain. ALLERGIES: PENICILLIN. CURRENT MEDICATIONS: Hydrochlorothiazide 12.5 mg once a day, lisinopril 40 mg once a day, simvastatin 40 mg once a day, albuterol 2 puffs q. 4 hours p.r.n. wheezing. IMAGING: MRI lumbar spine obtained 05/03/2020 shows laminectomy changes at L2-L3, though there is a severe central canal stenosis and bilateral lateral recess stenosis and bilateral neural foraminal stenosis at the L3-L4 level. There is mild central canal stenosis, bilateral recess stenosis and bilateral neural foraminal stenosis at L4-L5. Broad-based disk bulge is noted at L2-3, though postsurgical changes provide no central canal stenosis. There is diffusely diminished bone marrow signal throughout. PQRS: The patient has known arthritic changes of the lumbar spine, bilateral hips and knees. No rheumatoid arthritis, placing current pain score at 8/10. He is not a fall risk, has not had a fall in last 3 months. He is not on blood thinners, but is treated for hypertension. He is not on chronic opioids as a low opiate addiction potential. Pain impact is 40/70, moderate to severe interference with daily activities secondary to pain. PHYSICAL EXAMINATION: VITAL SIGNS: Blood pressure 135/74, pulse 77, respiratory rate 16 and unlabored. The patient is 98% on room air. Height 5 feet 9 inches tall, weight 430 pounds, BMI calculated at 63.5. GENERAL: A well-developed, well-nourished, well-hydrated severely morbidly obese 49-year-old male. He appears his stated age, placing current pain score at 8/10. HEENT: normocephalic, atraumatic. Pupils equal, round and responsive. Extraocular muscles are intact. Speech is fluent. The patient deemed a good historian. He is wearing a mask in compliance with COVID-19 regulations. LUNGS: Appear clear, though there is a prolonged expiratory phase and light [facility] [address] [place] [address] PAIN MANAGEMENT CONSULTATION Name: J CARLOS PAUL STALLINGS Cynthia Room #: REG [facility].#: [id number] Admission: 07/16/20 Attend Phys: Bill Adam DO Discharge: Date of : 66 Report #: [id number] wheezing noted with exhalation. ABDOMEN: Soft. Severely obese. Bowel sounds are present. CARDIOVASCULAR: Distant heart sounds. There does not appear to be gallop or rub. EXTREMITIES: Show no clubbing, no cyanosis, nonpitting lower extremity edema is noted. MUSCULOSKELETAL: Lower extremity strength is symmetrical, but deconditioned bilaterally, 5/5 intact to light touch from L1 through S2 dermatomes. Seated straight leg raising is negative. Supine straight leg raising is unobtainable due to body habitus. Ankle clonus negative. Babinski is negative. Gait appears antalgic, favoring left lower extremity over right. Stance is forward flexed. There is accentuation of lordotic curvature due to a large pannus. No spinous process tenderness is noted over the lumbar spine. Some palpatory tenderness over the paraspinal musculature. ASSESSMENT: 1. Symptomatic lumbar radiculopathy. 2. Severe central canal stenosis of lumbar spine. 3. Severe neural foraminal stenosis of lumbar spine. 4. Severe facet arthropathy, lumbar spine. 5. Lumbosacral spondylosis with radiculopathy. 6. Lumbar degeneration. 7. Severe morbid obesity. PLAN: 1. Based on today's physical exam and history the patient has provided, the description the patient uses in regards to pain as well as the description uses in regards to the symptoms, the likely source of the patient's pain is a lumbar radiculopathy. We have reviewed with the patient his MRI obtained 05/03/2020 and correlated to his current symptoms, it would appear the patient is suffering from lumbar radiculopathy secondary to the severe central canal stenosis at the L3-L4 level. We have discussed with the patient the findings of his MRI over an 18 minutes where we have described the findings and how they correlate to his current symptoms. After this discussion of those findings and his current symptoms, we then discussed the treatment options that we have available. The following was discussed with the patient today. We discussed physical therapy, stretching exercise, core strengthening and a significant and concerted effort at weight loss. With the BMI of 63.5, there is very little in the way of conservative treatment options that will provide benefit without a significant weight loss. It is the weight that is contributing significantly to his ongoing pain issues. He will need to address this weight issue sooner rather than later. We are going to defer to the primary team in regards to that issue and treatment course including a referral to Bariatric Surgery. We discussed suggestions and medication management, utilizing neuropathic medications understanding that those medications can cause [address] [address] PAIN MANAGEMENT CONSULTATION Name: PAUL WHITMAN SR Room #: REG EMMY Fraire#: [id number] Admission: 07/16/20 Attend Phys: Bill Adam DO Discharge: Date of : 66 Report #: [id number] sleepiness, disorientation, confusion, mental slowing. These would include amitriptyline, nortriptyline, Cymbalta, Lyrica or gabapentin. We discussed lumbar epidural injections under fluoroscopic guidance, for which the patient was referred to our clinic. We also discussed surgical options, which based on the severity of his stenosis at 3-4, will likely be necessary. After reviewing the risks and benefits of all proposed treatment options, the patient chose to move forward with a lumbar epidural injection under fluoroscopic guidance. 2. The patient will be established an appointment tomorrow to undergo lumbar epidural injection under fluoroscopic guidance. We need to obtain a table, which can support his excessive weight. We have contacted our bioengineering team here at the hospital, they have confirmed that the table that we have obtained will be able to support his weight. We have also done some measurements on the gantry of the C-arm to confirm that the device can be utilized to image the patient. The patient will also need to clear his schedule for the morning and afternoon of the Wednesday, 07/17, so that he can rest and recover from the procedure planned for that day. The patient is agreeable with this plan. We will make the appointment tomorrow to undergo the first in a series of lumbar epidural injections. 3. No medication changes made at today's visit. The patient will continue current medical therapy as prior prescribed. 4. We plan to see the patient back in followup visit tomorrow to undergo the first in a series of lumbar epidural injections. We are hopeful that the patient will see good and prolonged benefit with that procedure. We did discuss with the patient that if he did not see improvement with an epidural injection, surgical options would likely be necessary to address the severe central canal stenosis and foraminal stenosis at the L3-L4 level. He is agreeable with that plan. 5. We wish to thank Dr. Buatista for the referral of this patient to our clinic. We will keep you apprised of his response to treatment to the lumbar epidural injection proposed today. Again, we wish to thank you for the opportunity to see this patient in consultation. DO RICHARD De La Torre/REGINA Rubio: 07/16/2020 06:06 PM <ELECTRONICALLY SIGNED> By: Bill Adam DO 07/23/20 0933 1706 0010 Bill Adam DO /nt
== END ==
LOC: PAIN 07-03 07:09
PROVIDERS: ATTEND Anesthesiology Pain Medicine
DX: M47.26 Other spondylosis with radiculopathy, lumbar region (principal); M48.061 Spinal stenosis, lumbar region without neurogenic claudication; M47.27 Other spondylosis with radiculopathy, lumbosacral region; M51.16 Intervertebral disc disorders with radiculopathy, lumbar region; E66.01 Morbid (severe) obesity due to excess calories; Z79.891 Long term (current) use of opiate analgesic; Z79.899 Other long term (current) drug therapy

== ENCOUNTER → 2020-07-17 | Outpatient (CLI) | payer OTHER, BC ==
[~2020-07-17] VITALS: Ht 175.3 cm; Wt 195.0 kg
[2020-07-17 08:39] VITALS: BP 135/67
--- NOTE | 2020-07-17 08:49 | NUR ---
Pain Clinic Assessment: 1. History of Osteoarthritis: Not Applicable History of Rheumatoid Arthritis: Not Applicable 2. Height: 5 ft. 9 in. 175.3 cm. Weight: 430.0 lb. oz. 195.048 kg. Patient's BMI: 63.5 3. Vital Signs: BP: 135/67 Pulse: 66 Resp: 20 Temp: 02 Sat: 98 ECG Mon: 4. Pain Intensity: 8 5. Fall Risk: Dizziness: N Needs help standing or walking: N Fallen in the last 3 months: N Fall risk comments: 6. Patient on Blood Thinner: None 7. History of Hypertension: Y 8. Opioid Therapy greater than 6 weeks: Opiate Contract Signed: 9. Risk Assessment Tool Provided: 0 LOW RISK 10. Functional Assessment Tool: 11. Recreational Drug Use: Never Drug Type: Tobacco Use: Former Smoker Tobacco Type: Amount or Packs/day: How Many Years: Alcohol Use: No Frequency: Quant:
--- NOTE | 2020-07-23 09:33 | HPC ---
[facility] [place] [address] PAIN MANAGEMENT CONSULTATION Name: J CARLOS PAUL STALLINGS Room #: REG [facility]#: [id number] Admission: 07/17/20 Attend Phys: Bill Adam DO Discharge: Date of : 66 Report #: [id number] THIS REPORT FOR: cc: Bill Bautista James A. DO Johnson, James E. DO ~ DOC #: [id number] Bill Adam DO DATE OF SERVICE: 07/17/2020 CHIEF COMPLAINT: Low back pain, left lower extremity pain with paresthesias. HISTORY OF PRESENT ILLNESS: As you know, the patient is a very pleasant 49-year-old severely morbidly obese male with longstanding history of low back pain, left lower extremity pain with paresthesias. The patient was seen in consultation per the request of Dr. Bautista on 07/16/2020 diagnosed with lumbar radiculopathy secondary to severe central canal stenosis. He was established today's appointment to undergo a lumbar epidural injection under fluoroscopic guidance. The patient was able to clear his scheduled for the rest of the day to go home rest and relax after the procedure. He returns today in followup visit reporting pain score of 8/10. He has had no changes in medication management since our visit of yesterday. ALLERGIES: PENICILLIN. CURRENT MEDICATIONS: Hydrochlorothiazide, lisinopril, simvastatin, albuterol. SOCIAL HISTORY: The patient denies tobacco use. Denies alcohol or IV illicit drug use. He is working, not receiving workmen's compensation, unaccompanied today. IMAGING: No new imaging available. PQRS: The patient has known arthritic changes of the lumbar spine, bilateral hips and knees. No rheumatoid arthritis. He is placing current pain score at 8/10. He is not a fall risk, has not had a fall in last 3 months. He is not on blood thinners, but is treated for hypertension. He is not on any chronic opioids, has a low opiate addiction potential. Pain impact remains at 40/70, moderate interference of daily activities secondary to pain. PHYSICAL EXAMINATION: VITAL SIGNS: Blood pressure 135/67, pulse is 66, respiratory rate 20, unlabored. The patient 98% on room air. Height 5 feet 9 inches tall, weight 430 pounds, BMI calculated 63.5. GENERAL: Well-developed, well-nourished, well-hydrated severely morbidly obese 49-year-old male, appearing stated age, placing current pain score at 8/10. HEENT: Normocephalic, atraumatic. Pupils are [place] [address] PAIN MANAGEMENT CONSULTATION Name: PAUL WHITMAN SR Room #: REG EMMY Fraire#: [id number] Admission: 07/17/20 Attend Phys: Bill Adam DO Discharge: Date of : 66 Report #: [id number] patient is wearing a mask in compliance with COVID-19 regulations. EXTREMITIES: Show no clubbing, no cyanosis. There is nonpitting lower extremity edema noted bilaterally. MUSCULOSKELETAL: Seated straight leg raising remains negative. Supine straight leg raising again is unobtainable due to body habitus. Muscle strength is 5/5. Muscle bulk and tone is symmetrical in comparing lower extremities. ASSESSMENT: 1. Symptomatic lumbar radiculopathy. 2. Severe central canal stenosis of the lumbar spine. 3. Severe neural foraminal stenosis of the lumbar spine. 4. Severe facet arthropathy of the lumbar spine. 5. Lumbosacral spondylosis with radiculopathy. 6. Lumbar degeneration. 7. Severe morbid obesity. PLAN: 1. The patient returns today in followup visit having prepared to undergo a lumbar epidural injection under fluoroscopic guidance. The patient has been advised of the risks and the benefits of a lumbar epidural injection. These risks include but are not necessarily limited to bleeding, bruising, infection, worsening pain, no relief of pain and also risk of temporary or permanent muscle weakness, temporary or permanent nerve damage, possible paralysis, and . The patient states understood and wished to proceed. 2. No medication changes made at today's visit. The patient will continue with current medical therapy as prior prescribed. 3. We plan to see the patient back in followup visit in 1 month for possible next in the series of lumbar epidural injections. We are hopeful the patient will see good and prolonged benefit with today's procedure. PROCEDURE NOTE DESCRIPTION OF PROCEDURE: L5-S1 left paramedian epidural steroid injection under fluoroscopic guidance. This is the first procedure of the first series that the patient is undergoing. After obtaining written consent, the patient was taken back to the fluoroscopy suite, placed in a prone position with pillow under the abdomen to decrease lumbar lordosis. The skin overlying the lumbosacral area was then prepped and draped in aseptic fashion. The L5-S1 vertebral interspace was then identified by AP fluoroscopy. The skin and subcutaneous tissue overlying the target site of injection was anesthetized with 3 mL 1% lidocaine. A 20-gauge 6-inch Tuohy needle was then advanced under fluoroscopic guidance towards the epidural space using a left paramedian approach. The epidural space was identified using loss of resistance to air technique. After negative [address] [address] PAIN MANAGEMENT CONSULTATION Name: PAUL WHITMAN SR Room #: [facility]#: [id number] Admission: 07/17/20 Attend Phys: Bill Adam DO Discharge: Date of : 66 Report #: [id number] aspiration for heme or cerebrospinal fluid, a total of 1 mL of Omnipaque was injected. A lumbar epidurogram was confirmed using both AP and lateral fluoroscopy. After negative aspiration for heme or cerebrospinal fluid, 5 mL of a solution containing 2 mL 40 mg per mL 80 mg total triamcinolone along with 3 mL of lidocaine 1% was injected in increments. Contrast spread was noted posterior epidural space. The needle was then retracted approximately half way and needle tract flushed with 1 mL of 1% lidocaine. Needle was then removed. There were no apparent sensory or motor deficits in the lower extremity following the procedure. A sterile bandage was placed over the injection site. The heart rate, pulse, oximetry and blood pressure were continuously monitored after the procedure. There were no apparent complications. The patient tolerated the procedure well and was carefully escorted to the recovery room in stable condition. There were no apparent complications. After meeting discharge criteria, the patient was then discharged home. DO ALEX De La TorreJ/RUSLAN <ELECTRONICALLY SIGNED> By: Bill Adam DO 07/23/2033 22 Bill Adam DO /nt
== END | disposition home or self-care (01) ==
LOC: PAIN 06:50
PROVIDERS: ATTEND Anesthesiology Pain Medicine
DX: M51.16 Intervertebral disc disorders with radiculopathy, lumbar region (principal); M47.27 Other spondylosis with radiculopathy, lumbosacral region; M47.26 Other spondylosis with radiculopathy, lumbar region; M48.061 Spinal stenosis, lumbar region without neurogenic claudication; G89.29 Other chronic pain; E66.01 Morbid (severe) obesity due to excess calories; Z68.44 Body mass index [BMI] 60.0-69.9, adult; I10 Essential (primary) hypertension; M19.90 Unspecified osteoarthritis, unspecified site; Z98.890 Other specified postprocedural states; Z79.899 Other long term (current) drug therapy; Z88.0 Allergy status to penicillin

== ENCOUNTER → 2020-08-20 | Outpatient (CLI) | payer OTHER, BC ==
[~2020-08-20] VITALS: Ht 175.3 cm; Wt 201.5 kg
[2020-08-20 09:13] VITALS: BP 157/98
--- NOTE | 2020-08-20 09:19 | NUR ---
Pain Clinic Assessment: 1. History of Osteoarthritis: Not Applicable History of Rheumatoid Arthritis: Not Applicable 2. Height: 5 ft. 9 in. 175.3 cm. Weight: 444.2 lb. oz. 201.489 kg. Patient's BMI: 65.6 3. Vital Signs: BP: 157/98 Pulse: 69 Resp: 16 Temp: 02 Sat: 98 ECG Mon: 4. Pain Intensity: 6 5. Fall Risk: Dizziness: N Needs help standing or walking: N Fallen in the last 3 months: N Fall risk comments: 6. Patient on Blood Thinner: None 7. History of Hypertension: Y 8. Opioid Therapy greater than 6 weeks: Opiate Contract Signed: 9. Risk Assessment Tool Provided: 0 LOW RISK 10. Functional Assessment Tool: 11. Recreational Drug Use: Never Drug Type: Tobacco Use: Former Smoker Tobacco Type: Amount or Packs/day: How Many Years: Alcohol Use: No Frequency: Quant:
--- NOTE | 2020-08-21 08:04 | HPC ---
[facility] [place] [address] PAIN MANAGEMENT CONSULTATION Name: PAUL WHITMAN SR [id number] Admission: 08/20/20 Attend Phys: Bill Adam DO Discharge: Date of : 66 Report #: [id number] THIS REPORT FOR: cc: Bill Bautista,Bill Regalado DO ~ cc: Bill Bautista DO DATE OF SERVICE: 08/20/2020 REFERRING PHYSICIAN: Bill Bautista DO CHIEF COMPLAINT: Low back pain, left lower extremity pain with paresthesias. HISTORY OF PRESENT ILLNESS: As you know, the patient is a very pleasant, severely morbidly obese 49-year-old male with longstanding history of low back pain, left lower extremity pain with paresthesias. He was seen in consultation per the request of Dr. Bautista on 07/16/2020, diagnosed with lumbar radiculopathy secondary to severe central canal stenosis. He underwent the first in a series of lumbar epidural injections on 07/17/2020. He reports improvement in symptoms initially at 90% improvement, but unfortunately his symptoms did reoccur over a period of time. He returns today in followup visit requesting to undergo next in the series of lumbar epidural injections in hopes of improving pain. He places his current pain score a 6/10, states pain begins in low back, radiates down the left leg in classic dermatomal distribution. The patient denies any new injury, trauma or any changes in medical history since our last visit. ALLERGIES: PENICILLIN. CURRENT MEDICATIONS: Hydrochlorothiazide, lisinopril, simvastatin, albuterol. SOCIAL HISTORY: The patient denies tobacco use, denies IV or illicit drug use. He is working, not receiving workmen's compensation, unaccompanied today. IMAGING: No new imaging available. PQRS: The patient has known arthritic changes of lumbar spine, bilateral hips and knees. No rheumatoid arthritis. He is placing pain intensity today at 6/10. He is not a fall risk, has not had a fall in last 3 months. He is not on blood thinners, but is treated for hypertension. He is not on opioids, has a low opioid addiction potential based on assessment tool. Pain impact is 40/70, moderate interference in daily activities secondary to pain. PHYSICAL EXAMINATION: VITAL SIGNS: Blood pressure 157/98, pulse 69, respiratory rate 16 and unlabored. The patient is 98% on room air. Height 5 feet 9 inches tall, weight [facility] [address] [place] [address] PAIN MANAGEMENT CONSULTATION Name: PAUL WHITMAN SR Cynthia Room #: REG [facility]#: [id number] Admission: 08/20/20 Attend Phys: Bill Adam DO Discharge: Date of : 66 Report #: [id number] 444.2 pounds, BMI calculated 65.6. GENERAL: Well-developed, well-nourished, well-hydrated, severely morbidly obese 49-year-old male, appearing stated age. He is placing current pain score 6/10. HEENT: Normocephalic, atraumatic. Pupils are round and responsive. EXTREMITIES: Show no clubbing, no cyanosis and no edema. MUSCULOSKELETAL: Lower extremity strength appears symmetrical, 5/5. Muscle bulk and tone is equal and symmetrical comparing lower extremities. Seated straight leg raising negative. Supine straight leg raising is again unobtainable due to body habitus. Muscle tone appears normal. His gait is mildly antalgic, favoring left lower extremity over right. ASSESSMENT: 1. Symptomatic lumbar radiculopathy. 2. Severe central canal stenosis of lumbar spine. 3. Severe neural foraminal stenosis of lumbar spine. 4. Severe facet arthropathy of lumbar spine. 5. Lumbosacral spondylosis without radiculopathy. 6. Lumbar degeneration. 7. Severe morbid obesity. PLAN: 1. The patient returns today in followup visit indicating improvement in his symptoms of initially 90% with the epidural injection, but unfortunately his symptoms have reoccurred. He is now placing his pain score around 6/10. He returns today in followup visit requesting to undergo next in the series of lumbar epidural injections. The patient was very pleased with response to the initial injection, hopeful to see further and prolonged improvement with the second in the series of epidural injections. He has been advised risks and benefits of the procedure, states understood and wished to proceed. 2. No medication changes made at today's visit. The patient will continue current medical therapy as prior prescribed. 3. We will see the patient back in followup visit on an as needed basis for the next in the series of lumbar epidural injections. We are hopeful the patient will see good benefit with today's procedure. PROCEDURE NOTE DESCRIPTION OF PROCEDURE: L5-S1 parasagittal epidural steroid injection under fluoroscopic guidance. After obtaining written consent, the patient was taken back to fluoroscopy suite, placed in prone position with pillow under abdomen to decrease lumbar lordosis. Skin overlying lumbosacral area prepped and draped in aseptic fashion. L5-S1 vertebral interspace identified by AP fluoroscopy. Skin and subcutaneous tissue overlying target site of injection anesthetized with 3 mL preservative-free 1% lidocaine. [address] [place] [address] PAIN MANAGEMENT CONSULTATION Name: J CARLOS PAUL STALLINGS Cynthia Room #: REG [facility]#: [id number] Admission: 08/20/20 Attend Phys: Bill Adam DO Discharge: Date of : 66 Report #: [id number] A 20-gauge 6-inch Tuohy needle advanced under fluoroscopic guidance towards the epidural space using a parasagittal approach. Epidural space identified using loss of resistance to air technique. After negative aspiration for heme or cerebrospinal fluid, 1 mL of Omnipaque injected. Lumbar epidurogram was confirmed using both AP and lateral fluoroscopy. After negative aspiration for heme or cerebrospinal fluid, 5 mL of a solution containing 2 mL, 40 mg per mL, 80 mg total triamcinolone along with 3 mL of lidocaine 1% injected slowly. Needle retracted mcc, flushed with 1 mL of 1% lidocaine and then removed. Sterile bandage placed over injection site. No new motor deficits present in the lower extremities following procedure. The patient tolerated procedure well, carefully escorted to recovery room in stable condition. No apparent complications. After meeting discharge criteria, the patient discharged home. <ELECTRONICALLY SIGNED> By: Bill Adam DO 08/21/20 [id number] Bill Adam DO /nt
== END | disposition home or self-care (01) ==
LOC: PAIN 06:54
PROVIDERS: ATTEND Anesthesiology Pain Medicine
DX: M51.16 Intervertebral disc disorders with radiculopathy, lumbar region (principal); M48.061 Spinal stenosis, lumbar region without neurogenic claudication; M47.27 Other spondylosis with radiculopathy, lumbosacral region; M47.26 Other spondylosis with radiculopathy, lumbar region; G89.29 Other chronic pain; E66.01 Morbid (severe) obesity due to excess calories; I10 Essential (primary) hypertension; M19.90 Unspecified osteoarthritis, unspecified site; Z98.890 Other specified postprocedural states; Z79.899 Other long term (current) drug therapy; Z88.8 Allergy status to other drugs, medicaments and biological substances; Z88.0 Allergy status to penicillin; Z68.44 Body mass index [BMI] 60.0-69.9, adult

== ENCOUNTER → 2020-12-10 | Outpatient (CLI) | payer BC, OTHER | LOC: ULTRA 11:49 | PROVIDERS: ATTEND Family Medicine | DX: M79.605 Pain in left leg (principal); R60.0 Localized edema ==